=== PATIENT | male | born 2000 | race Caucasian/White ===

== ENCOUNTER 2023-03-28 12:17 | Emergency (ER) | payer OTHER ==
[~2023-03-28] VITALS: Ht 165.1 cm; Wt 98.8 kg
[2023-03-28] MEDS ORDERED: ATORVASTATIN CA20 MG PO (12:29)
[2023-03-28] MEDS ORDERED: CLONIDINE HCL0.1 MG PO (12:29)
[2023-03-28] MEDS ORDERED: FAMOTIDINE20 MG PO (12:29)
[2023-03-28] MEDS ORDERED: OXCARBAZEPINE300 MG PO (12:29)
[2023-03-28] MEDS ORDERED: METFORMIN HCL500 M1 PO (12:29)
[2023-03-28] MEDS ORDERED: DOCUSATE SODIU100 MG PO (12:29)
[2023-03-28 12:42] LABS: MCH 29.1 (27-36); MCHC 33.6 g/dl (30-36); MCV 86.6 fl (81-99); RDW 14.5 (10.5-15.0)
[2023-03-28 12:44] LABS: EOSINOPHILS 8.8 % (0-6); HEMATOCRIT 49.9 % (35.0-50.0); HEMOGLOBIN 16.8 g/dL (12.0-18.0); LYMPHOCYTES 30.5 % (24-44); MONOCYTES 10.9 % (0-12); NEUTROPHILS 48.8 % (39-80); PLATELET COUNT 258 K/uL (140-440); RBC 5.76 M/ul (4.3-5.7)
[2023-03-28 12:54] LABS: ALBUMIN 4.2 g/dL (3.4-5.0); ALBUMIN/GLOBULIN RATIO 1.11 (1.1-2.4); ANION GAP 12.8 (7-21); BILIRUBIN, TOTAL 0.4 ng/dL (0.2-1.0); BUN/CREATININE RATIO 12.71 (6.0-28.6); CALCIUM 9.9 mg/dL (8.5-10.1); CREATININE, SERUM 1.18 mg/dL (0.70-1.30); POTASSIUM 3.8 mmol/L (3.5-5.1)
[2023-03-28 14:19] LABS: BILIRUBIN, URINE NEGATIVE (negative); BLOOD/HGB, URINE NEGATIVE (Negative); KETONE, URINE NEGATIVE (Negative); LEUK ESTERASE, URINE NEGATIVE (negative); NITRITE, URINE NEGATIVE (negative); PH, URINE 6.5 (5-7)
[2023-03-28 14:46] VITALS: BP 143/87
== END 2023-03-28 14:45 | disposition home or self-care (01) ==
LOC: ED 12:17
PROVIDERS: Emergency Medicine
DX: R10.30 Lower abdominal pain, unspecified (principal); K76.0 Fatty (change of) liver, not elsewhere classified; Z79.899 Other long term (current) drug therapy; Z79.84 Long term (current) use of oral hypoglycemic drugs
CPT/HCPCS: 36415; 74177; 80053; 81003; 85025; 99284-25; Q9967